=== PATIENT | female | born 1965 | race Caucasian/White ===

== ENCOUNTER 2018-07-19 16:32 | Emergency (ER) | payer OTHER ==
[~2018-07-19] VITALS: Ht 165.1 cm; Wt 174.6 kg
[2018-07-19] MEDS ORDERED: LIPITOR10 MG PO (16:52)
[2018-07-19] MEDS ORDERED: JARDIANCE10 MG PO (16:52)
[2018-07-19] MEDS ORDERED: [UNRECOGNIZED DRUG - OTHER] PO (16:53)
[2018-07-19] MEDS ORDERED: ASPIR 8181 MG PO (16:53)
[2018-07-19 17:08] LABS: URINE BILIRUBIN NEGATIVE (Negative); URINE BLOOD NEGATIVE (Negative); URINE CLARITY CLEAR; URINE COLOR YELLOW; URINE GLUCOSE-RANDOM 3+ (Negative); URINE KETONES NEGATIVE (Negative); URINE LEUKOCYTES-REFLEX NEGATIVE (Negative); URINE NITRITE-REFLEX NEGATIVE (Negative); URINE PROTEIN NEGATIVE (Negative); URINE SPECIFIC GRAVITY 1.025 (1.005-1.030); URINE UROBILINOGEN 0.2 E.U./dl (0.2-1.0)
[2018-07-19 17:25] LABS: HEMATOCRIT 45.3 % (37.0-47.0); HEMOGLOBIN 15.4 gm/dL (12.0-15.0); MCH 28.9 pg (26.0-34.0); MCV 84.9 fL (80.0-100.0); MPV 7.6 fl. (7.2-11.1); NUCLEATED RBCS 0 /100WBC; PLATELET COUNT* 699 thou/uL (150-400); RBC 5.33 mil/uL (4.20-5.00); RDW-CV 15.1 % (10.5-14.5); WBC 9.6 thou/uL (4.0-11.0)
[2018-07-19 17:47] LABS: ANION GAP 8 mmol/L (7-16); BUN 14 mg/dL (7-18); CHLORIDE 101 mmol/L (98-107); CO2 33 mmol/L (21-32); CREATININE 0.8 mg/dL (0.6-1.3); GLUCOSE 194 mg/dL (70-99); POTASSIUM 3.2 mmol/L (3.5-5.1); SODIUM 142 mmol/L (136-145); TROPONIN-I LEVEL <0.06 ng/mL (<0.06)
[2018-07-19 17:48] LABS: ALBUMIN 3.7 g/dL (3.4-5.0); ALKALINE PHOSPHATASE 104 U/L (46-116); LIPASE 91 U/L (73-393); NT-PRO BRAIN NAT PEPTIDE 180 pg/mL (<300); SGOT 16 U/L (15-37); SGPT 28 U/L (30-65); TOTAL BILIRUBIN 0.3 mg/dL (<0.1-1.0); TOTAL PROTEIN 7.3 g/dL (6.4-8.2)
[2018-07-19 18:00] LABS: ABSOLUTE EOSINOPHILS 0.2 thou/uL (0.0-0.7); ABSOLUTE LYMPHOCYTES 2.1 thou/uL (0.8-5.3); ABSOLUTE MONOCYTES 0.2 thou/uL (0.0-1.2); ABSOLUTE NEUTROPHILS 7.1 thou/uL (1.6-8.1); PLATELET ESTIMATE INCREASED
[2018-07-19] MEDS ORDERED: BENTYL 20 MG TA20 M1 PO (18:27)
[2018-07-19 19:01] VITALS: BP 149/96
--- NOTE | 2018-07-20 10:04 | EKG ---
[place] [address] ELECTROCARDIOGRAM REPORT Name: SHIVA CLARKE Room: [facility]#: [id number] Admission: 07/19/18 Attend Phys: Discharge: 07/19/18 Date of : 67 Report #: [id number] THIS REPORT FOR: //name// 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 : 1965 Requested By: Margie Eagle Order Number: [id number] MD: Gabriel Owens Measurements Intervals [place] Rate: 73 P: 67 [place]: 176 QRS: -21 QRSD: 116 T: 51 QT: 417 QTc: 460 Interpretive Statements Sinus rhythm Consider left atrial enlargement Incomplete right bundle branch block Low voltage, extremity and precordial leads No previous ECG available for comparison Electronically Signed On 07-20-2018 10:04:26 CDT by Gabriel Owens [email or web address] <ELECTRONICALLY SIGNED> By: Gabriel Owens MD, [facility] 07/20/18 1004 1736 35 Gabriel Owens MD, [facility] /EPI
== END 2018-07-19 18:55 | disposition home or self-care (01) ==
LOC: M.ERS 16:32
PROVIDERS: Nurse Practitioner Family
DX: R10.84 Generalized abdominal pain (principal); Z90.49 Acquired absence of other specified parts of digestive tract; Z90.710 Acquired absence of both cervix and uterus

== ENCOUNTER 2018-08-30 08:00 | Emergency (ER) | payer OTHER ==
[~2018-08-30] VITALS: Ht 167.6 cm; Wt 170.1 kg
[~2018-08-30 08:00] MED LIST: ASPIR 8181 MG PO; BENTYL 20 MG TA20 M1 PO; JARDIANCE10 MG PO; LIPITOR10 MG PO; [UNRECOGNIZED DRUG - OTHER] PO
[2018-08-30] MEDS ORDERED: METFORMIN HCL500 MG (08:19)
[2018-08-30] MEDS ORDERED: NAPROSYN500 MG PO (09:51)
[2018-08-30] MEDS ORDERED: KEFLEX500 M1 PO (09:51)
[2018-08-30 10:26] VITALS: BP 145/89
== END 2018-08-30 10:28 | disposition home or self-care (01) ==
LOC: M.ERS 08:00
DX: M77.9 Enthesopathy, unspecified (principal); E11.9 Type 2 diabetes mellitus without complications; I11.0 Hypertensive heart disease with heart failure; I50.9 Heart failure, unspecified; E78.00 Pure hypercholesterolemia, unspecified; Z90.710 Acquired absence of both cervix and uterus

== ENCOUNTER 2018-10-04 10:19 | Emergency (ER) | payer OTHER ==
[~2018-10-04] VITALS: Ht 170.2 cm; Wt 186.4 kg
[~2018-10-04 10:19] MED LIST changes: +KEFLEX500 M1 PO; +METFORMIN HCL500 MG; +NAPROSYN500 MG PO
[2018-10-04] MEDS ORDERED: CHLORTHALIDONE (10:30)
[2018-10-04 11:05] LABS: ABSOLUTE BASOPHILS 0.1 thou/uL (0.0-0.2); ABSOLUTE EOSINOPHILS 0.3 thou/uL (0.0-0.7); ABSOLUTE LYMPHOCYTES 1.4 thou/uL (0.8-5.3); ABSOLUTE MONOCYTES 0.3 thou/uL (0.0-1.2); ABSOLUTE NEUTROPHILS 6.5 thou/uL (1.6-8.1); BASOPHILS 0.9 %; EOSINOPHILS 2.9 %; HEMOGLOBIN 14.3 gm/dL (12.0-15.0); LYMPHOCYTES 16.7 %; MCH 28.3 pg (26.0-34.0); MCHC 33.2 g/dL (28.0-37.0); MCV 85.2 fL (80.0-100.0); NUCLEATED RBCS 0 /100WBC; PLATELET COUNT* 690 thou/uL (150-400); POLYS 75.5 %; RBC 5.05 mil/uL (4.20-5.00); RDW-CV 15.2 % (10.5-14.5); WBC 8.6 thou/uL (4.0-11.0)
[2018-10-04 11:11] LABS: PROTIME 9.9 Seconds (9.20-11.50)
[2018-10-04 11:19] LABS: ANION GAP 10 mmol/L (7-16); BUN 21 mg/dL (7-18); CALCIUM 8.7 mg/dL (8.5-10.1); CHLORIDE 98 mmol/L (98-107); CO2 29 mmol/L (21-32); CREATININE 1.2 mg/dL (0.6-1.3); GLUCOSE 315 mg/dL (70-99); POTASSIUM 3.7 mmol/L (3.5-5.1); SODIUM 137 mmol/L (136-145)
[2018-10-04 11:30] LABS: BE 3.8 mmol/L (-2 to +3); PCO2 37.4 mmHg (35.0-45.0); PO2 76.1 mmHg (75.0-100.0); pH 7.481 (7.340-7.450)
[2018-10-04 11:32] LABS: ALBUMIN 3.2 g/dL (3.4-5.0); ALKALINE PHOSPHATASE 97 U/L (46-116); MAGNESIUM 1.6 mg/dL (1.8-2.4); NT-PRO BRAIN NAT PEPTIDE 197 pg/mL (<300); SGOT 12 U/L (15-37); SGPT 27 U/L (30-65); TOTAL BILIRUBIN 0.3 mg/dL (<0.1-1.0); TOTAL PROTEIN 6.8 g/dL (6.4-8.2); TROPONIN-I LEVEL <0.06 ng/mL (<0.06)
[2018-10-04 12:14] LABS: URINE BILIRUBIN NEGATIVE (Negative); URINE BLOOD NEGATIVE (Negative); URINE CLARITY CLEAR; URINE COLOR YELLOW; URINE GLUCOSE-RANDOM 3+ (Negative); URINE KETONES TRACE (Negative); URINE LEUKOCYTES-REFLEX NEGATIVE (Negative); URINE NITRITE-REFLEX NEGATIVE (Negative); URINE PROTEIN NEGATIVE (Negative); URINE SPECIFIC GRAVITY 1.015 (1.005-1.030); URINE UROBILINOGEN 0.2 E.U./dl (0.2-1.0)
[2018-10-04 14:47] VITALS: BP 119/62
--- NOTE | 2018-10-04 16:55 | EKG ---
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 : 1965 Requested By: Darlene Albrecht Order Number: [id number] Reading MD: Vishal Mason Measurements Intervals [place] Rate: 90 P: 38 [place]: 163 QRS: -40 QRSD: 103 T: 32 QT: 374 QTc: 458 Interpretive Statements Sinus rhythm RSR' in V1 or V2, probably normal variant Inferior infarct, old Compared to ECG 07/19/2018 17:36:53 no change Electronically Signed On 10-04-2018 16:55:42 CDT by Vishal Mason [email or web address] <ELECTRONICALLY SIGNED> By: Vishal Mason MD, [facility] 10/04/18 1655 1026 1026 Vishal Mason MD, FAC /EPI
== END 2018-10-04 14:48 | disposition home or self-care (01) ==
LOC: M.ERS 10:19
PROVIDERS: Personal Emergency Response Attendant
DX: E11.65 Type 2 diabetes mellitus with hyperglycemia (principal); E86.0 Dehydration; R06.02 Shortness of breath; I11.0 Hypertensive heart disease with heart failure; I50.9 Heart failure, unspecified; E78.00 Pure hypercholesterolemia, unspecified; Z91.012 Allergy to eggs; Z90.49 Acquired absence of other specified parts of digestive tract; Z90.710 Acquired absence of both cervix and uterus